=== PATIENT | male | born 1980 | race American Indian/Alaskan Native ===

== ENCOUNTER 2020-08-14 13:40 | Emergency (ER) | payer MEDICAID, OTHER ==
[2020-08-14 13:55] VITALS: BP 132/76; PULSE 76
--- NOTE | 2020-08-14 14:03 | EDM.PDOC ---
"ED HPI GENERAL MEDICAL PROBLEM - General Chief Complaint: Head Injury Stated Complaint: AMBULANCE Time Seen by Provider: 08/14/20 14:02 Source of Information: Reports: Patient, EMS, Old Records, Provider, RN, RN Notes Reviewed History Limitations: Reports: No Limitations - History of Present Illness INITIAL COMMENTS - FREE TEXT/NARRATIVE: Pt brought by [facility] from [facility] with c/o slipping on wet floor at 0930HRS today and falling injuring left side of face. Pt has hardware in face from injury requiring zygoma ORIF by Dr. Reyes in 2009 or 2010. Pt states a screw from the hardware in the left side of his face came out just below the eye lid area. He pulled the screw out and has it in a plastic bag. Pt denies LOC. pt states he has blurred vision to left eye that was not previously there before injury. Onset: Today, Sudden Onset Date: 08/14/20 Onset Time: 09:30 Location: Reports: Face Quality: Reports: Ache Severity: Mild Improves with: Reports: None Worsens with: Reports: None Associated Symptoms: Reports: No Other Symptoms Left Face/Facial Pain Score (Numeric/FACES): 10 - Related Data Allergies Allergy/AdvReac Type Severity Reaction Status Date / Time amoxicillin [Amoxicillin] Allergy Hives Verified 08/14/20 13:55 Home Meds: Home Meds Acetaminophen [Tylenol Extra Strength] 1,000 mg PO DAILY PRN 05/25/15 [History] Past Medical History - Past Health History Medical/Surgical History: Denies Medical/Surgical History HEENT History: Reports: Other (See Below) (Facial trauma with left zygoma fracture s/p ORIF in 2009.) Cardiovascular History: Reports: None Respiratory History: Reports: None Gastrointestinal History: Reports: None Genitourinary History: Reports: None Musculoskeletal History: Reports: None Neurological History: Reports: None Psychiatric History: Reports: None Endocrine/Metabolic History: Reports: None Hematologic History: Reports: None Immunologic History: Reports: None Oncologic (Cancer) History: Reports: None Dermatologic History: Reports: None - Infectious Disease History Infectious Disease History: Reports: None - Past Surgical History Head Surgeries/Procedures: Reports: None Musculoskeletal Surgical History: Reports: Other (See Below) Other Musculoskeletal Surgeries/Procedures:: left facial reconstruction surgery Social & Family History - Family History Family Medical History: No Pertinent Family History - Tobacco Use Tobacco Use Status *Q: Current Every Day Tobacco User Years of Tobacco use: 30 Packs/Tins Daily: 1 - Caffeine Use Caffeine Use: Reports: Energy Drinks - Recreational Drug Use Recreational Drug Use: Yes - Living Situation & Occupation Living situation: Reports: with Family Occupation: Employed ED ROS GENERAL - Review of Systems Review Of Systems: Comprehensive ROS is negative, except as noted in HPI. ED EXAM, GENERAL - Physical Exam Exam: See Below Exam Limited By: No Limitations General Appearance: Alert, WD/WN, No Apparent Distress Eye Exam: Bilateral Eye: EOMI, Normal Inspection, PERRL Ears: Normal External Exam, Normal Canal, Hearing Grossly Normal, Normal TMs Nose: Normal Inspection, Normal Mucosa, No Blood Throat/Mouth: Normal Lips, Normal Voice, No Airway Compromise Head: Normocephalic, Other (skin tenting with a small hole at the left lateral infraorbital face, no drainage, no bleeding, or surrounding erythema) Neck: Normal Inspection, Supple, Non-Tender, Full Range of Motion Respiratory/Chest: No Respiratory Distress Neurological: Alert, Oriented, CN II-XII Intact, Normal Cognition, Normal Gait, No Motor/Sensory Deficits Psychiatric: Normal Affect, Normal Mood Skin Exam: Warm, Dry, Normal Color, No Rash Course - Vital Signs Last Recorded V/S: Last Vital Signs Temp 98.1 F 08/14/20 13:50 Pulse 76 08/14/20 13:50 Resp 16 08/14/20 13:50 BP 132/76 08/14/20 13:50 Pulse Ox 98 08/14/20 13:50 - Radiology Interpretation Free Text/Narrative:: [facility] Final Radiology Report Call: [phone] assistance Online chat: [email or web address] Name: DWAIN MENDOZA Age: 39Years M Date: 08/14/2020 SSN: -- : [id number] Study: CT MAX FACIAL SINUS WO CONT Requesting Physician: DANN MARTIN Images: [id number] Addl Studies: Provided Clinical History: Fall, head/face injury. Hx trauma w/ zygoma fracture s/p ORIF in 2010. Today metal screw came out of the skin at the lateral inferior left infraorbital face. Contrast: Without Contrast Medium: Contrast Amount: Contrast Method: Page 1 of 2 PROCEDURE INFORMATION: Exam: CT Maxillofacial Without Contrast Exam date and time: 08/14/2020 2:14 PM Age: 39 years old Clinical indication: Injury or trauma; Fall; Blunt trauma (contusions or hematomas); Orbit/periorbital; Left; Additional info: Fall, head/face injury. HX trauma w/ zygoma fracture S/P orif in 2010. Today metal screw came out of the skin at the lateral inferior left infraorbital face. TECHNIQUE: Imaging protocol: Computed tomography images of the face without contrast. Radiation optimization: All CT scans at this facility use at least one of these dose optimization techniques: automated exposure control; mA and/or kV adjustment per patient size (includes targeted exams where dose is matched to clinical indication); or iterative reconstruction. COMPARISON: CT FACIAL 02/27/2013 11:23 PM FINDINGS: Tubes, catheters and devices: Previous left zygomaticofrontal arch repair with metallic plate and screws. Orbital cavity: Orbits are normal. Globes are unremarkable. Bones/joints: Healed left zygomatic arch fracture. Nasal pyramid deviation to th e left, no acute fracture identified. Paranasal sinuses: Previous anterior left maxillary reconstruction with metallic plate and screws. Soft tissues: Mild left lateral infraorbital soft tissue swelling. Dental: Left maxillary lateral incisor periapical abscess measuring 7.5 mm. IMPRESSION: DWAIN MENDOZA | Final Radiology Report CONFIDENTIALITY STATEMENT This report is intended only for use by the referring physician, and only in accordance with law. If you received this in error, call [phone]. Page 2 of 2 1. No acute facial bony injury identified. 2. Postoperative changes as above. 3. Interval left maxillary lateral incisor periapical abscess. Thank you for allowing us to participate in the care of your patient. Dictated and Authenticated by: Yony Moreno MD 08/14/2020 2:38 PM Central Time ([place] & [place]) [facility] Final Radiology Report Call: [phone] assistance Online chat: [email or web address] Name: DWAIN MENDOZA Age: 39Years M Date: 08/14/2020 SSN: -- : 1980 Study: CT HEAD WO CONT Requesting Physician: DANN MARTIN Images: [id number] Addl Studies: Provided Clinical History: Fall, head/face injury Contrast: Without Contrast Medium: Contrast Amount: Contrast Method: Page 1 of 2 PROCEDURE INFORMATION: Exam: CT Head Without Contrast Exam date and time: 08/14/2020 2:14 PM Age: 39 years old Clinical indication: Injury or trauma; Fall; Blunt trauma (contusions or hematomas); Consciousness not specified; Additional info: Fall, head/face injury TECHNIQUE: Imaging protocol: Computed tomography of the head without contrast. Radiation optimization: All CT scans at this facility use at least one of these dose optimization techniques: automated exposure control; mA and/or kV adjustment per patient size (includes targeted exams where dose is matched to clinical indication); or iterative reconstruction. COMPARISON: CT HEAD 02/27/2013 11:20 PM FINDINGS: Brain: Normal. No hemorrhage. Unremarkable white matter. No mass effect. Cerebral ventricles: No ventriculomegaly. Bones/joints: Chronic healed left-sided zygomatic arch fracture. No acute fracture. Nasal pyramid deviation to the left, no acute fracture identified. Paranasal sinuses: Previous left zygomatofrontal arch and anterior maxillary sinus wall repair. Mastoid air cells: Visualized mastoid air cells are well aerated. Soft tissues: Mild left lateral infraorbital soft tissue swelling. IMPRESSION: No acute intracranial injury identified. Thank you for allowing us to participate in the care of your patient. DWAIN MENDOZA | Final Radiology Report CONFIDENTIALITY STATEMENT This report is intended only for use by the referring physician, and only in accordance with law. If you received this in error, call [phone]. Page 2 of 2 Dictated and Authenticated by: Yony Moreno MD 08/14/2020 2:35 PM Central Time ([place] & [place]) - Re-Assessments/Exams Free Text/Narrative Re-Assessment/Exam: 08/14/20 15:06 Oral/Max/Facial surg. Dr. Palacios consulted via [employer]. He advises the pt be placed on antibiotics and have pt call the clinic to schedule outpt. f/u appointment with Dr. Reyes. Departure - Departure Time of Disposition: 14:51 Disposition: Home, Self-Care 01 Condition: Good Clinical Impression: Exposed orthopaedic hardware Facial injury Qualifiers: Encounter type: initial encounter Qualified Code(s): S09.93XA - Unspecified injury of face, initial encounter - Discharge Information *PRESCRIPTION DRUG MONITORING PROGRAM REVIEWED*: Not Applicable *COPY OF PRESCRIPTION DRUG MONITORING REPORT IN PATIENT DELIO: Not Applicable Instructions: Facial or Scalp Contusion, [id number] Forms: ED Department Discharge Additional Instructions: Rx: Clindamycin 300mg Call Dr. Reyes's office at [phone] to schedule an appointment. Sepsis Event Note (ED) - Evaluation Sepsis Screening Result: No Definite Risk - Focused Exam Vital Signs: Vital Signs Temp Pulse Resp BP Pulse Ox 08/14/20 13:50 98.1 F 76 16 132/76 98"
--- NOTE | 2020-08-14 14:35 | CT ---
PROCEDURE INFORMATION: Exam: CT Head Without Contrast Exam date and time: 08/14/2020 2:14 PM Age: 39 years old Clinical indication: Injury or trauma; Fall; Blunt trauma (contusions or hematomas); Consciousness not specified; Additional info: Fall, head/face injury TECHNIQUE: Imaging protocol: Computed tomography of the head without contrast. Radiation optimization: All CT scans at this facility use at least one of these dose optimization techniques: automated exposure control; mA and/or kV adjustment per patient size (includes targeted exams where dose is matched to clinical indication); or iterative reconstruction. COMPARISON: CT HEAD 02/27/2013 11:20 PM FINDINGS: Brain: Normal. No hemorrhage. Unremarkable white matter. No mass effect. Cerebral ventricles: No ventriculomegaly. Bones/joints: Chronic healed left-sided zygomatic arch fracture. No acute fracture. Nasal pyramid deviation to the left, no acute fracture identified. Paranasal sinuses: Previous left zygomatofrontal arch and anterior maxillary sinus wall repair. Mastoid air cells: Visualized mastoid air cells are well aerated. Soft tissues: Mild left lateral infraorbital soft tissue swelling. IMPRESSION: No acute intracranial injury identified.
--- NOTE | 2020-08-14 14:38 | CT ---
PROCEDURE INFORMATION: Exam: CT Maxillofacial Without Contrast Exam date and time: 08/14/2020 2:14 PM Age: 39 years old Clinical indication: Injury or trauma; Fall; Blunt trauma (contusions or hematomas); Orbit/periorbital; Left; Additional info: Fall, head/face injury. HX trauma w/ zygoma fracture S/P orif in 2010. Today metal screw came out of the skin at the lateral inferior left infraorbital face. TECHNIQUE: Imaging protocol: Computed tomography images of the face without contrast. Radiation optimization: All CT scans at this facility use at least one of these dose optimization techniques: automated exposure control; mA and/or kV adjustment per patient size (includes targeted exams where dose is matched to clinical indication); or iterative reconstruction. COMPARISON: CT FACIAL 02/27/2013 11:23 PM FINDINGS: Tubes, catheters and devices: Previous left zygomaticofrontal arch repair with metallic plate and screws. Orbital cavity: Orbits are normal. Globes are unremarkable. Bones/joints: Healed left zygomatic arch fracture. Nasal pyramid deviation to the left, no acute fracture identified. Paranasal sinuses: Previous anterior left maxillary reconstruction with metallic plate and screws. Soft tissues: Mild left lateral infraorbital soft tissue swelling. Dental: Left maxillary lateral incisor periapical abscess measuring 7.5 mm. IMPRESSION: 1. No acute facial bony injury identified. 2. Postoperative changes as above. 3. Interval left maxillary lateral incisor periapical abscess.
== END 2020-08-14 15:05 | disposition home or self-care (01) ==
LOC: DL.ED 13:40
DX: T84.498A Other mechanical complication of other internal orthopedic devices, implants and grafts, initial encounter (principal); Z88.1 Allergy status to other antibiotic agents; Z72.0 Tobacco use; W01.0XXA Fall on same level from slipping, tripping and stumbling without subsequent striking against object, initial encounter
CPT/HCPCS: 70450; 70486; 99283; 99284-25

== ENCOUNTER 2023-03-27 08:38 | Day surgery (SDC) | payer MEDICAID, OTHER ==
[~2023-03-27 08:38] MED LIST: Clindamycin in 0.9 % Sod Chlor 600 MG in Premix Bag 1 BAG IV ONE; Lactated Ringers 1,000 ML IV SCH; Sodium Chloride 0.9% 10 ML Syringe FLUSH PRN
[2023-03-27] MEDS ORDERED: Lidocaine 1% 30 ML SDV ONE (08:52)
[2023-03-27] MEDS ORDERED: Bupivacaine 0.5% 30 ML SDV ONE (08:52)
[2023-03-27] MEDS ORDERED: Lidocaine 1% 30 ML SDV INJECT ONE (10:25)
[2023-03-27] MEDS ORDERED: Bupivacaine 0.5% 30 ML SDV INJECT ONE (10:25)
[2023-03-27 14:11] VITALS: BP 121/67; PULSE 56
[2023-03-28] MEDS ORDERED: Multivitamin Tab PO SCH (09:00)
== END 2023-03-27 13:45 | disposition home or self-care (01) ==
LOC: DL.SDS 08:38
PROVIDERS: ATTEND Podiatrist Foot & Ankle Surgery
DX: M21.611 Bunion of right foot (principal); M20.11 Hallux valgus (acquired), right foot; F11.11 Opioid abuse, in remission; F12.11 Cannabis abuse, in remission; F32.A Depression, unspecified; F41.9 Anxiety disorder, unspecified; J44.9 Chronic obstructive pulmonary disease, unspecified; M54.9 Dorsalgia, unspecified; G89.29 Other chronic pain; F17.210 Nicotine dependence, cigarettes, uncomplicated; Z88.0 Allergy status to penicillin
CPT/HCPCS: 01480; 76000; 97165-GO; J3490